=== PATIENT | female | born 1960 | race Caucasian/White ===

== ENCOUNTER 2019-09-15 12:10 | Emergency (ER) | payer MEDICAID ==
[~2019-09-15] VITALS: Ht 165.1 cm; Wt 99.8 kg
[2019-09-15 12:47] VITALS: BP_SYST 110
[2019-09-15] MEDS ORDERED: TRAZ50TA54 PO (12:47)
[2019-09-15] MEDS ORDERED: RIVA20TA PO (12:47)
[2019-09-15] MEDS ORDERED: HYDR-1189 PO (12:47)
[2019-09-15] MEDS ORDERED: CYCL-10 PO (12:47)
[2019-09-15] MEDS ORDERED: TAMO20TA4 PO (12:47)
[2019-09-15] MEDS ORDERED: MEGE40TA PO (12:47)
[2019-09-15] MEDS ORDERED: GABA-331 PO (12:47)
[2019-09-15] MEDS ORDERED: PARO10TA75 PO (12:47)
[2019-09-15] MEDS ORDERED: PROC-11 PO (12:47)
[2019-09-15] MEDS ORDERED: OXYB5TAB11 PO (12:47)
--- NOTE | 2019-09-15 12:52 | NUR ---
PATIENT TO [facility]
--- NOTE | 2019-09-15 13:10 | NUR ---
MD SEWELL AT BEDSIDE ASSESSING PT.
--- NOTE | 2019-09-15 13:20 | NUR ---
RN ASSESSING PT. PT STATED SHE HAD ILLIOSTOMY IN THE LAST FEW MONTHS AND WAS ON MORPHINE. SHE STATED SHE CURRENTLY USES NORCO 5MG. SHE CAME TO THE ER WITH BACK PAIN WITHOUT TRAUMA. PT IS ORIENTED, CALM AND STABLE.
--- NOTE | 2019-09-15 13:30 | NUR ---
Note undone in ED - 09/15/19 at 1343 by [email or web address] Patient given written and verbal discharge instructions and verbalizes understanding. ER discussed with patient the results and treatment provided. Patient in stable condition. ID arm band removed. Rx of TYLENOL given. Patient educated on pain management and to follow up with PMD. Pain Scale 0/10 . Opportunity for questions provided and answered. Medication side effect fact sheet provided.
[2019-09-15] MEDS ORDERED: NACL 0.9% 1,000 ML IV ONE (14:15)
[2019-09-15 14:34] LABS: BILIRUBIN,URINE NEGATIVE (NEGATIVE); BLOOD, URINE 3+ (NEGATIVE); CLARITY/URINE SL CLOUDY (CLEAR); COLOR,URINE YELLOW (YELLOW); GLUCOSE,URINE NEGATIVE (NEGATIVE); KETONES,URINE NEGATIVE (NEGATIVE); LEUKOCYTE ESTERASE ,URINE 2+ (NEGATIVE); NITRITE, URINE NEGATIVE (NEGATIVE); PH,URINE 6.5 (5.0-8.0); PROTEIN URINE 2+ (NEGATIVE); UROBILINOGEN,URINE 0.2 (0.2-1.0)
[2019-09-15 14:51] LABS: BASOPHILS % (AUTO) 0.2 % (0.0-2.0); CALCIUM 10.2 mg/dL (8.4-11.0); CREATININE 0.96 mg/dL (0.55-1.30); EOSINOPHILS % (AUTO) 0.1 % (0.0-4.0); HEMATOCRIT 37.6 % (36-48); HEMOGLOBIN 12.4 g/dL (12.0-16.0); LYMPHOCYTES # (AUTO) 0.4 K/uL (1.0-5.5); LYMPHOCYTES % (AUTO) 3.8 % (20.5-51.5); MEAN CORPUSCULAR HEMOGLOBIN 30 pg (27-31); MEAN CORPUSCULAR HGB CONC 33 % (32-36); MEAN CORPUSCULAR VOLUME 92 fL (79.0-98.0); MONOCYTES # (AUTO) 0.5 K/uL (0.0-1.0); NEUTROPHILS # (AUTO) 10.3 K/uL (1.8-7.7); NEUTROPHILS % (AUTO) 91.9 % (40.0-70.0); PLATELET COUNT (AUTO) 213 K/uL (130-430); POTASSIUM 3.7 mmol/L (3.5-5.1); RED BLOOD CELL COUNT(AUTO) 4.08 MIL/uL (4.2-6.2); RED CELL DISTRIBUTION WIDTH 13.6 % (9.0-15.0); WHITE BLOOD COUNT (AUTO) 11.2 K/uL (4.8-10.8)
[2019-09-15 14:52] LABS: RBC,URINE >100 /HPF (0-3); WBC,URINE 20-50 /HPF (0-3)
[2019-09-15 14:53] LABS: BACTERIA,URINE FEW /HPF (None Seen); MUCUS,URINE None Seen /LPF (None Seen)
--- NOTE | 2019-09-15 14:54 | NUR ---
CALM, ALERT, RESP UNLABORED, CLEAR MENTATION AND SPEECH. IV HYDRATION W/NS
[2019-09-15 14:58] LABS: ALBUMIN 3.7 g/dL (3.4-4.8); TOTAL BILIRUBIN 0.4 mg/dL (0.0-1.0)
[2019-09-15 15:17] LABS: INR 1.1 (0.8-1.2); PROTHROMBIN TIME 10.9 SECS (9.5-12.5)
--- NOTE | 2019-09-15 15:44 | NUR ---
US BEING DONE NOW.
[2019-09-15] MEDS ORDERED: MORPHINE 4 MG/ML INJ. SYRINGE IVP ONE ×2 (17:00→18:00)
--- NOTE | 2019-09-15 18:16 | NUR ---
PT IS EATING DINNER. PAIN MEDCIATION GIVEN AND VERY EFFECTIVE. PT IS NOT COMPLAINING OF ANY PAIN AT THIS TIME. LEVOQUIN GIVEN.
--- NOTE | 2019-09-15 19:04 | NUR ---
Patient given written and verbal discharge instructions and verbalizes understanding. ER MD discussed with patient the results and treatment provided. Patient in stable condition. ID arm band removed. IV catheter removed intact and dressing applied, no active bleeding. Rx of norco 5 mg and tylenol given. Patient educated on pain management and to follow up with PMD. Pain Scale 0/10. Opportunity for questions provided and answered. Medication side effect fact sheet provided.
[2019-09-15 19:05] VITALS: BP_SYST 115
== END 2019-09-15 19:05 | disposition home or self-care (01) ==
LOC: SED 12:10
DX: C55 Malignant neoplasm of uterus, part unspecified (principal); M54.5 Low back pain; N39.0 Urinary tract infection, site not specified; F17.200 Nicotine dependence, unspecified, uncomplicated; Z85.43 Personal history of malignant neoplasm of ovary; Z79.899 Other long term (current) drug therapy; Z88.1 Allergy status to other antibiotic agents
CPT/HCPCS: 36415; 71045; 72100; 76830; 76857; 80053; 81000; 82150; 82550; 83605; 83690; 84484; 85025; 85610; 85730; 87040; 87086; 93005; 96365; 96375; 99285; J1956; J2270; J7030; 76856-TC

== ENCOUNTER 2020-01-13 15:40 | Inpatient (IN) | payer MEDICAID, SELFPAY ==
[~2020-01-13] VITALS: Ht 160 cm; Wt 88.0 kg
[~2020-01-13 15:40] MED LIST: CYCL-10 PO; GABA-331 PO; HYDR-1189 PO; MEGE40TA PO; OXYB5TAB17 PO; PARO10TA75 PO; PROC-11 PO; RIVA20TA PO; TAMO20TA4 PO; TRAZ50TA54 PO
[2020-01-13 15:45] VITALS: BP_SYST 92
[2020-01-13] MEDS ORDERED: LEVOFLOXACIN 500 MG/D5W 100 ML IV ONE (16:00)
[2020-01-13] MEDS ORDERED: NS 1000 ML IV.SOLN IV ONE (16:00)
[2020-01-13] MEDS ORDERED: KETOROLAC TROMETHAMINE 30 MG VIAL IVP ONE (16:15)
[2020-01-13 16:41] LABS: HEMATOCRIT 26.6 % (36-48); MEAN CORPUSCULAR HEMOGLOBIN 29 pg (27-31); MEAN CORPUSCULAR HGB CONC 34 % (32-36); MEAN CORPUSCULAR VOLUME 85 fL (79.0-98.0); PLATELET COUNT (AUTO) 362 K/uL (130-430); RED BLOOD CELL COUNT(AUTO) 3.13 MIL/uL (4.2-6.2); WHITE BLOOD COUNT (AUTO) 8.9 K/uL (4.8-10.8)
[2020-01-13 17:00] LABS: CALCIUM 8.5 mg/dL (8.4-11.0); CREATININE 2.4 mg/dL (0.55-1.30)
[2020-01-13 17:08] LABS: ALBUMIN 2.1 g/dL (3.4-4.8); TOTAL BILIRUBIN 0.3 mg/dL (0.0-1.0)
[2020-01-13 17:29] LABS: COLOR,URINE YELLOW (YELLOW)
[2020-01-13 17:30] LABS: BILIRUBIN,URINE NEGATIVE (NEGATIVE); BLOOD, URINE 3+ (NEGATIVE); CLARITY/URINE TURBID (CLEAR); GLUCOSE,URINE NEGATIVE (NEGATIVE); KETONES,URINE TRACE (NEGATIVE); LEUKOCYTE ESTERASE ,URINE 2+ (NEGATIVE); NITRITE, URINE NEGATIVE (NEGATIVE); PH,URINE 6.5 (5.0-8.0); PROTEIN URINE 3+ (NEGATIVE); UROBILINOGEN,URINE 0.2 (0.2-1.0)
[2020-01-13 17:41] LABS: BACTERIA,URINE MANY /HPF (None Seen); MUCUS,URINE None Seen /LPF (None Seen); RBC,URINE 20-50 /HPF (0-3); WBC,URINE >100 /HPF (0-3)
[2020-01-13 17:42] LABS: URINE AMORPHOUS URATE 3+ /HPF (None Seen)
[2020-01-13 17:43] LABS: BAND % (MANUAL) 32 % (0-6); BASOPHILS % (MANUAL) 0 % (0-2); EOSINOPHILS % (MANUAL) 0 % (0-7); LYMPHOCYTES % (MANUAL) 8 % (20-46); MONOCYTES % (MANUAL) 4 % (0-11)
[2020-01-13 17:44] LABS: METAMYELOCYTES % 8 % (0-0); MYELOCYTES % 4 % (0-0); PROMYELOCYTES % 1 % (0-0)
[2020-01-13] MEDS ORDERED: PIPERACILLIN/TAZOBACTAM 2.25 GM in NS 50 ML IV ONE (17:45)
[2020-01-13 19:00] VITALS: BP_SYST 73
[2020-01-13] MEDS ORDERED: NALOXONE HCL 0.4 MG/ML AMP (NARCAN) IVP PRN ×2 (19:15→19:45)
[2020-01-13] MEDS ORDERED: HYDROcodone/ACETAMIN 5-325 MG TAB (NORCO/ VICODIN) PO SCH (19:15)
[2020-01-13] MEDS ORDERED: CYCLOBENZAPRINE HCL 10 MG TABLET (FLEXERIL) PO SCH (19:15)
[2020-01-13] MEDS ORDERED: ACETAMINOPHEN 325 MG TABLET PO PRN (19:30)
[2020-01-13] MEDS ORDERED: PANTOPRAZOLE SODIUM 40 MG/VIAL (PROTONIX) IVP ONE (19:30)
[2020-01-13] MEDS: ALBUMIN HUMAN 25% 100 ML IV SCH (19:30)
[2020-01-13] MEDS ORDERED: POTASSIUM CHLORIDE 20 MEQ TAB.PRT.SR PO ONE (19:30)
[2020-01-13] MEDS ORDERED: DIPHENHYDRAMINE INJ 50 MG/ML VIAL IVP PRN (19:45)
[2020-01-13 20:00] VITALS: BP_SYST 67; BP_SYST 86
[2020-01-13] MEDS ORDERED: NOREPINEPHRINE 4 MG/4 ML VIAL IV ONE (20:20)
[2020-01-13 21:00] VITALS: BP_SYST 128
[2020-01-13] MEDS: traZODone HCL 50 MG TABLET (DESYREL) PO SCH (21:00)
[2020-01-13] MEDS: NOREPINEPHRINE BITARTRATE 4 MG in D5W 246 ML IV PRN (21:27)
[2020-01-13] MEDS ORDERED: DOXYCYCLINE HYCLATE 100 MG VIAL IV ONE (21:27)
[2020-01-13] MEDS: NACL 0.9% 1,000 ML IV SCH (21:56)
[2020-01-13 22:00] VITALS: BP_SYST 108
[2020-01-13] MEDS: DOXYCYCLINE HYCLATE 100 MG in D5W 100 ML IV SCH (22:05)
[2020-01-13] MEDS: GABAPENTIN 100 MG CAPSULE PO SCH (22:06)
[2020-01-13 23:00] VITALS: BP_SYST 110
[2020-01-14] VITALS (22 sets, daily range): BP systolic 93–135
[2020-01-14] MEDS: ALBUMIN HUMAN 25% 100 ML IV SCH ×2 (00:51→03:37)
[2020-01-14] MEDS ORDERED: ALBUMIN HUMAN 25% 100 ML IV ONE ×2 (01:06→03:56)
[2020-01-14] MEDS: NACL 0.9% 1,000 ML IV SCH ×4 (01:55→22:12)
[2020-01-14 06:18] LABS: BASOPHILS % (AUTO) 0.1 % (0.0-2.0); EOSINOPHILS % (AUTO) 0.1 % (0.0-4.0); HEMATOCRIT 23.8 % (36-48); HEMOGLOBIN 7.9 g/dL (12.0-16.0); LYMPHOCYTES # (AUTO) 0.9 K/uL (1.0-5.5); LYMPHOCYTES % (AUTO) 9.3 % (20.5-51.5); MEAN CORPUSCULAR HEMOGLOBIN 29 pg (27-31); MEAN CORPUSCULAR HGB CONC 33 % (32-36); MEAN CORPUSCULAR VOLUME 85 fL (79.0-98.0); MONOCYTES # (AUTO) 0.9 K/uL (0.0-1.0); MONOCYTES % (AUTO) 9.8 % (1.7-9.3); NEUTROPHILS # (AUTO) 7.5 K/uL (1.8-7.7); NEUTROPHILS % (AUTO) 80.7 % (40.0-70.0); PLATELET COUNT (AUTO) 377 K/uL (130-430); RED BLOOD CELL COUNT(AUTO) 2.79 MIL/uL (4.2-6.2); WHITE BLOOD COUNT (AUTO) 9.3 K/uL (4.8-10.8)
[2020-01-14 07:50] LABS: CALCIUM 8.3 mg/dL (8.4-11.0); CREATININE 2.05 mg/dL (0.55-1.30); POTASSIUM 3.5 mmol/L (3.5-5.1); TOTAL BILIRUBIN 0.2 mg/dL (0.0-1.0)
[2020-01-14 07:51] LABS: ALBUMIN 2.8 g/dL (3.4-4.8)
[2020-01-14 07:53] LABS: TOTAL IRON BIND. CAPACITY 124 ug/dL (250-450)
[2020-01-14] MEDS: DOXYCYCLINE HYCLATE 100 MG in D5W 100 ML IV SCH (08:21)
[2020-01-14] MEDS: PANTOPRAZOLE SODIUM 40 MG/VIAL (PROTONIX) IVP SCH (09:02)
[2020-01-14] MEDS: PARoxetine HCL 20 MG TABLET PO SCH (09:03)
[2020-01-14] MEDS: TAMOXIFEN CITRATE 10 MG TABLET PO SCH (09:03)
[2020-01-14] MEDS: GABAPENTIN 100 MG CAPSULE PO SCH ×3 (09:03→20:21)
[2020-01-14] MEDS: OXYBUTYNIN CHLORIDE 5 MG TABLET PO SCH (09:03)
[2020-01-14] MEDS: MEGESTROL ACETATE 40 MG TABLET PO SCH (09:03)
[2020-01-14] MEDS ORDERED: CIPROFLOXACIN LACT 200 MG/D5W 100 ML IV SCH (10:00)
[2020-01-14] MEDS: HYDROcodone/ACETAMIN 10-325 MG TAB PO PRN ×3 (13:27→23:48)
[2020-01-14] MEDS: MEROPENEM 500 MG in NS 50 ML IV SCH ×2 (13:34→22:17)
[2020-01-14] MEDS: NOREPINEPHRINE BITARTRATE 4 MG in D5W 246 ML IV PRN (13:41)
[2020-01-14] MEDS ORDERED: RIVAROXABAN 10 MG TABLET PO SCH (18:00)
[2020-01-14] MEDS: SOD FERRIC GLUC COMPLEX/SUC 125 MG in NS 100 ML IV SCH (18:19)
[2020-01-14] MEDS: traZODone HCL 50 MG TABLET (DESYREL) PO SCH (20:21)
[2020-01-14] MEDS: MULTIVITAMINS TAB 1 TABLET PO SCH (20:21)
[2020-01-15] VITALS (21 sets, daily range): BP systolic 93–130
[2020-01-15] MEDS: NACL 0.9% 1,000 ML IV SCH ×4 (05:03→21:00)
[2020-01-15] MEDS: HYDROcodone/ACETAMIN 10-325 MG TAB PO PRN ×5 (05:08→20:57)
[2020-01-15] MEDS: MEROPENEM 500 MG in NS 50 ML IV SCH ×3 (05:22→22:25)
[2020-01-15 06:30] LABS: BASOPHILS % (AUTO) 0.1 % (0.0-2.0); EOSINOPHILS % (AUTO) 0.3 % (0.0-4.0); HEMATOCRIT 25.2 % (36-48); HEMOGLOBIN 8.4 g/dL (12.0-16.0); LYMPHOCYTES % (AUTO) 10.2 % (20.5-51.5); MEAN CORPUSCULAR HEMOGLOBIN 29 pg (27-31); MEAN CORPUSCULAR HGB CONC 33 % (32-36); MEAN CORPUSCULAR VOLUME 86 fL (79.0-98.0); MONOCYTES # (AUTO) 0.6 K/uL (0.0-1.0); MONOCYTES % (AUTO) 5.8 % (1.7-9.3); NEUTROPHILS # (AUTO) 8.5 K/uL (1.8-7.7); NEUTROPHILS % (AUTO) 83.6 % (40.0-70.0); PLATELET COUNT (AUTO) 453 K/uL (130-430); RED BLOOD CELL COUNT(AUTO) 2.93 MIL/uL (4.2-6.2); RED CELL DISTRIBUTION WIDTH 17.1 % (9.0-15.0); WHITE BLOOD COUNT (AUTO) 10.2 K/uL (4.8-10.8)
[2020-01-15 07:43] LABS: ALBUMIN 2.2 g/dL (3.4-4.8); CALCIUM 8.5 mg/dL (8.4-11.0); CREATININE 1.22 mg/dL (0.55-1.30); PHOSPHORUS 1.3 mg/dL (2.7-4.5); TOTAL BILIRUBIN 0.2 mg/dL (0.0-1.0)
[2020-01-15 08:28] LABS: FOLATE (FOLIC ACID) 12.7 ng/mL (>3.0)
[2020-01-15] MEDS: PANTOPRAZOLE SODIUM 40 MG/VIAL (PROTONIX) IVP SCH (08:37)
[2020-01-15] MEDS: OXYBUTYNIN CHLORIDE 5 MG TABLET PO SCH (08:38)
[2020-01-15] MEDS: GABAPENTIN 100 MG CAPSULE PO SCH ×3 (08:38→20:16)
[2020-01-15] MEDS: PARoxetine HCL 20 MG TABLET PO SCH (08:38)
[2020-01-15] MEDS: MULTIVITAMINS TAB 1 TABLET PO SCH ×2 (08:38→20:16)
[2020-01-15] MEDS: CHOLECALCIFEROL (VITAMIN D3) 2,000 UNIT TABLET PO SCH (08:38)
[2020-01-15] MEDS: MEGESTROL ACETATE 40 MG TABLET PO SCH (08:39)
[2020-01-15] MEDS: TAMOXIFEN CITRATE 10 MG TABLET PO SCH (08:39)
[2020-01-15 08:59] LABS: POTASSIUM 2.9 mmol/L (3.5-5.1)
[2020-01-15] MEDS ORDERED: POTASSIUM CHLORIDE 20 MEQ/PKT PACKET PO ONE (09:00)
[2020-01-15] MEDS ORDERED: MAGNESIUM SULFATE 4 GM in D5W 250 ML IV ONE (12:15)
[2020-01-15] MEDS ORDERED: K PHOS 15 MM in NS 250 ML IV ONE (13:00)
[2020-01-15] MEDS ORDERED: MORPHINE SULFATE 30 MG TABLET.SA PO ONE (13:00)
[2020-01-15] MEDS: NAPH,MB-DB/K PH,MBDB 250 MG TAB PO SCH ×3 (13:08→20:16)
[2020-01-15] MEDS ORDERED: *LOVENOX 1MG/KG Q12H/PHARMACY XX ONE (15:00)
[2020-01-15] MEDS: POTASSIUM CHLORIDE 20 MEQ TAB.PRT.SR PO SCH ×2 (15:08→20:15)
[2020-01-15] MEDS: ENOXAPARIN SODIUM 80 MG/0.8 ML SYRINGE SUBCUT SCH (16:59)
[2020-01-15] MEDS ORDERED: RIVAROXABAN 10 MG TABLET PO SCH (18:00)
[2020-01-15] MEDS: SOD FERRIC GLUC COMPLEX/SUC 125 MG in NS 100 ML IV SCH (19:00)
[2020-01-15] MEDS: traZODone HCL 50 MG TABLET (DESYREL) PO SCH (20:15)
[2020-01-15] MEDS: MORPHINE SULFATE 30 MG TABLET.SA PO SCH (20:15)
[2020-01-15] MEDS: HYDROcodone/ACETAMIN 5-325 MG TAB (NORCO/ VICODIN) PO PRN (23:44)
[2020-01-16] VITALS (20 sets, daily range): BP systolic 92–143
[2020-01-16] MEDS: HYDROcodone/ACETAMIN 10-325 MG TAB PO PRN ×3 (02:16→19:20)
[2020-01-16] MEDS: ENOXAPARIN SODIUM 80 MG/0.8 ML SYRINGE SUBCUT SCH ×2 (04:59→15:11)
[2020-01-16] MEDS: MEROPENEM 500 MG in NS 50 ML IV SCH ×3 (05:00→22:08)
[2020-01-16 06:16] LABS: BASOPHILS % (AUTO) 0.3 % (0.0-2.0); EOSINOPHILS % (AUTO) 0.3 % (0.0-4.0); LYMPHOCYTES # (AUTO) 1.1 K/uL (1.0-5.5); LYMPHOCYTES % (AUTO) 15.1 % (20.5-51.5); MEAN CORPUSCULAR HEMOGLOBIN 29 pg (27-31); MEAN CORPUSCULAR HGB CONC 34 % (32-36); MEAN CORPUSCULAR VOLUME 84 fL (79.0-98.0); MONOCYTES # (AUTO) 0.4 K/uL (0.0-1.0); MONOCYTES % (AUTO) 5.7 % (1.7-9.3); NEUTROPHILS # (AUTO) 5.8 K/uL (1.8-7.7); NEUTROPHILS % (AUTO) 78.6 % (40.0-70.0); PLATELET COUNT (AUTO) 454 K/uL (130-430); RED BLOOD CELL COUNT(AUTO) 2.55 MIL/uL (4.2-6.2); WHITE BLOOD COUNT (AUTO) 7.4 K/uL (4.8-10.8)
[2020-01-16 06:39] LABS: CALCIUM 7.9 mg/dL (8.4-11.0); CREATININE 0.78 mg/dL (0.55-1.30); POTASSIUM 3.8 mmol/L (3.5-5.1)
[2020-01-16 06:55] LABS: HEMATOCRIT 21.5 % (36-48)
[2020-01-16 06:56] LABS: HEMOGLOBIN 7.3 g/dL (12.0-16.0)
[2020-01-16] MEDS: PANTOPRAZOLE SODIUM 40 MG/VIAL (PROTONIX) IVP SCH (08:38)
[2020-01-16] MEDS: POTASSIUM CHLORIDE 20 MEQ TAB.PRT.SR PO SCH ×3 (08:38→20:59)
[2020-01-16] MEDS: GABAPENTIN 100 MG CAPSULE PO SCH ×3 (08:38→20:59)
[2020-01-16] MEDS: PARoxetine HCL 20 MG TABLET PO SCH (08:38)
[2020-01-16] MEDS: MULTIVITAMINS TAB 1 TABLET PO SCH ×2 (08:38→20:59)
[2020-01-16] MEDS: NAPH,MB-DB/K PH,MBDB 250 MG TAB PO SCH ×4 (08:39→20:59)
[2020-01-16] MEDS: CHOLECALCIFEROL (VITAMIN D3) 2,000 UNIT TABLET PO SCH (08:39)
[2020-01-16] MEDS: OXYBUTYNIN CHLORIDE 5 MG TABLET PO SCH (08:39)
[2020-01-16] MEDS: MORPHINE SULFATE 30 MG TABLET.SA PO SCH ×3 (08:39→20:59)
[2020-01-16] MEDS: NACL 0.9% 1,000 ML IV SCH ×2 (11:37→19:47)
[2020-01-16] MEDS: HYDROcodone/ACETAMIN 5-325 MG TAB (NORCO/ VICODIN) PO PRN (11:39)
[2020-01-16] MEDS: SOD FERRIC GLUC COMPLEX/SUC 125 MG in NS 100 ML IV SCH (17:51)
[2020-01-16] MEDS: traZODone HCL 50 MG TABLET (DESYREL) PO SCH (20:58)
[2020-01-17] MEDS: HYDROcodone/ACETAMIN 10-325 MG TAB PO PRN ×5 (00:03→22:17)
[2020-01-17] MEDS: ENOXAPARIN SODIUM 80 MG/0.8 ML SYRINGE SUBCUT SCH ×2 (04:19→15:11)
[2020-01-17 06:43] LABS: BASOPHILS # (AUTO) 0.1 K/uL (0.0-0.2); BASOPHILS % (AUTO) 0.8 % (0.0-2.0); EOSINOPHILS % (AUTO) 0.3 % (0.0-4.0); HEMATOCRIT 26.1 % (36-48); HEMOGLOBIN 8.7 g/dL (12.0-16.0); LYMPHOCYTES % (AUTO) 13.8 % (20.5-51.5); MEAN CORPUSCULAR HEMOGLOBIN 29 pg (27-31); MEAN CORPUSCULAR HGB CONC 33 % (32-36); MEAN CORPUSCULAR VOLUME 86 fL (79.0-98.0); MONOCYTES # (AUTO) 0.5 K/uL (0.0-1.0); MONOCYTES % (AUTO) 7.2 % (1.7-9.3); NEUTROPHILS # (AUTO) 5.4 K/uL (1.8-7.7); NEUTROPHILS % (AUTO) 77.9 % (40.0-70.0); PLATELET COUNT (AUTO) 492 K/uL (130-430); RED BLOOD CELL COUNT(AUTO) 3.03 MIL/uL (4.2-6.2); WHITE BLOOD COUNT (AUTO) 6.9 K/uL (4.8-10.8)
[2020-01-17] MEDS: MEROPENEM 500 MG in NS 50 ML IV SCH (07:07)
[2020-01-17 07:12] LABS: ALBUMIN 2.3 g/dL (3.4-4.8); CALCIUM 8.5 mg/dL (8.4-11.0); CREATININE 0.67 mg/dL (0.55-1.30); PHOSPHORUS 2.8 mg/dL (2.7-4.5); POTASSIUM 4.1 mmol/L (3.5-5.1); TOTAL BILIRUBIN 0.3 mg/dL (0.0-1.0)
[2020-01-17] MEDS: NAPH,MB-DB/K PH,MBDB 250 MG TAB PO SCH ×4 (08:36→20:47)
[2020-01-17] MEDS: POTASSIUM CHLORIDE 20 MEQ TAB.PRT.SR PO SCH ×3 (08:36→20:47)
[2020-01-17] MEDS: MORPHINE SULFATE 30 MG TABLET.SA PO SCH ×3 (08:36→20:47)
[2020-01-17] MEDS: GABAPENTIN 100 MG CAPSULE PO SCH ×3 (08:36→20:47)
[2020-01-17] MEDS: MULTIVITAMINS TAB 1 TABLET PO SCH ×2 (08:36→20:47)
[2020-01-17] MEDS: PARoxetine HCL 20 MG TABLET PO SCH (08:36)
[2020-01-17] MEDS: OXYBUTYNIN CHLORIDE 5 MG TABLET PO SCH (08:36)
[2020-01-17] MEDS: CHOLECALCIFEROL (VITAMIN D3) 2,000 UNIT TABLET PO SCH (08:36)
[2020-01-17] MEDS: PANTOPRAZOLE SODIUM 40 MG/VIAL (PROTONIX) IVP SCH (08:36)
[2020-01-17] MEDS: LEVOFLOXACIN 250 MG/D5W 50 ML IV SCH (11:43)
[2020-01-17 12:15] VITALS: BP_SYST 112
[2020-01-17 16:54] VITALS: BP_SYST 116
[2020-01-17] MEDS: SOD FERRIC GLUC COMPLEX/SUC 125 MG in NS 100 ML IV SCH (17:11)
[2020-01-17] MEDS: NACL 0.9% 1,000 ML IV SCH (17:18)
[2020-01-17] MEDS: traZODone HCL 50 MG TABLET (DESYREL) PO SCH (20:47)
[2020-01-18] VITALS: BP_SYST 100
[2020-01-18] MEDS: ENOXAPARIN SODIUM 80 MG/0.8 ML SYRINGE SUBCUT SCH ×2 (03:27→15:17)
[2020-01-18] MEDS: HYDROcodone/ACETAMIN 10-325 MG TAB PO PRN ×4 (05:00→23:32)
[2020-01-18 06:33] LABS: BASOPHILS # (AUTO) 0.1 K/uL (0.0-0.2); BASOPHILS % (AUTO) 0.5 % (0.0-2.0); EOSINOPHILS # (AUTO) 0.1 K/uL (0.0-0.4); EOSINOPHILS % (AUTO) 1.3 % (0.0-4.0); HEMATOCRIT 26.8 % (36-48); HEMOGLOBIN 9.1 g/dL (12.0-16.0); LYMPHOCYTES # (AUTO) 1.5 K/uL (1.0-5.5); LYMPHOCYTES % (AUTO) 14.4 % (20.5-51.5); MEAN CORPUSCULAR HEMOGLOBIN 29 pg (27-31); MEAN CORPUSCULAR HGB CONC 34 % (32-36); MEAN CORPUSCULAR VOLUME 86 fL (79.0-98.0); MONOCYTES % (AUTO) 9.4 % (1.7-9.3); NEUTROPHILS # (AUTO) 7.6 K/uL (1.8-7.7); NEUTROPHILS % (AUTO) 74.4 % (40.0-70.0); PLATELET COUNT (AUTO) 522 K/uL (130-430); RED BLOOD CELL COUNT(AUTO) 3.13 MIL/uL (4.2-6.2); WHITE BLOOD COUNT (AUTO) 10.2 K/uL (4.8-10.8)
[2020-01-18 06:57] LABS: ALBUMIN 2.2 g/dL (3.4-4.8); CALCIUM 8.6 mg/dL (8.4-11.0); CREATININE 0.7 mg/dL (0.55-1.30); TOTAL BILIRUBIN 0.3 mg/dL (0.0-1.0)
[2020-01-18 08:03] VITALS: BP_SYST 111
[2020-01-18] MEDS: POTASSIUM CHLORIDE 20 MEQ TAB.PRT.SR PO SCH ×3 (08:38→20:59)
[2020-01-18] MEDS: GABAPENTIN 100 MG CAPSULE PO SCH ×3 (08:38→21:00)
[2020-01-18] MEDS: MULTIVITAMINS TAB 1 TABLET PO SCH ×2 (08:38→20:59)
[2020-01-18] MEDS: PANTOPRAZOLE SODIUM 40 MG/VIAL (PROTONIX) IVP SCH (08:38)
[2020-01-18] MEDS: PARoxetine HCL 20 MG TABLET PO SCH (08:39)
[2020-01-18] MEDS: CHOLECALCIFEROL (VITAMIN D3) 2,000 UNIT TABLET PO SCH (08:39)
[2020-01-18] MEDS: NAPH,MB-DB/K PH,MBDB 250 MG TAB PO SCH ×4 (08:39→20:59)
[2020-01-18] MEDS: MORPHINE SULFATE 30 MG TABLET.SA PO SCH ×3 (08:39→21:00)
[2020-01-18] MEDS: OXYBUTYNIN CHLORIDE 5 MG TABLET PO SCH (08:39)
[2020-01-18] MEDS: LEVOFLOXACIN 250 MG/D5W 50 ML IV SCH (11:16)
[2020-01-18 12:02] VITALS: BP_SYST 134
[2020-01-18] MEDS ORDERED: LOVI80 SQ (16:14)
[2020-01-18 16:23] VITALS: BP_SYST 130
[2020-01-18] MEDS: SOD FERRIC GLUC COMPLEX/SUC 125 MG in NS 100 ML IV SCH (18:33)
[2020-01-18] MEDS: NACL 0.9% 1,000 ML IV SCH (18:34)
[2020-01-18 20:00] VITALS: BP_SYST 98
[2020-01-18] MEDS: traZODone HCL 50 MG TABLET (DESYREL) PO SCH (21:00)
[2020-01-19 04:00] VITALS: BP_SYST 102
[2020-01-19] MEDS: HYDROcodone/ACETAMIN 10-325 MG TAB PO PRN ×4 (04:05→18:53)
[2020-01-19] MEDS: ENOXAPARIN SODIUM 80 MG/0.8 ML SYRINGE SUBCUT SCH ×2 (04:10→16:04)
[2020-01-19 08:00] VITALS: BP_SYST 161
[2020-01-19] MEDS: MULTIVITAMINS TAB 1 TABLET PO SCH ×2 (08:45→21:36)
[2020-01-19] MEDS: NAPH,MB-DB/K PH,MBDB 250 MG TAB PO SCH ×3 (08:45→21:35)
[2020-01-19] MEDS: POTASSIUM CHLORIDE 20 MEQ TAB.PRT.SR PO SCH ×2 (08:46→15:04)
[2020-01-19] MEDS: PARoxetine HCL 20 MG TABLET PO SCH (08:46)
[2020-01-19] MEDS: CHOLECALCIFEROL (VITAMIN D3) 2,000 UNIT TABLET PO SCH (08:46)
[2020-01-19] MEDS: OXYBUTYNIN CHLORIDE 5 MG TABLET PO SCH (08:46)
[2020-01-19] MEDS: GABAPENTIN 100 MG CAPSULE PO SCH ×3 (08:46→21:33)
[2020-01-19] MEDS: MORPHINE SULFATE 30 MG TABLET.SA PO SCH ×2 (08:46→21:36)
[2020-01-19] MEDS: PANTOPRAZOLE SODIUM 40 MG/VIAL (PROTONIX) IVP SCH (08:47)
[2020-01-19] MEDS ORDERED: levoFLOXacin 500 MG TABLET PO ONE (09:00)
[2020-01-19] MEDS: LEVOFLOXACIN 250 MG/D5W 50 ML IV SCH (12:14)
[2020-01-19] MEDS ORDERED: MORPHINE SULFATE 30 MG TABLET.SA PO SCH (12:45)
[2020-01-19 13:10] VITALS: BP_SYST 107
[2020-01-19] MEDS ORDERED: MORPHINE SULFATE 30 MG TABLET.SA PO ONE (13:45)
[2020-01-19] MEDS: SOD FERRIC GLUC COMPLEX/SUC 125 MG in NS 100 ML IV SCH (17:42)
[2020-01-19 18:09] VITALS: BP_SYST 108
[2020-01-19 20:00] VITALS: BP_SYST 126
[2020-01-19] MEDS: NACL 0.9% 1,000 ML IV SCH (21:33)
[2020-01-19] MEDS: traZODone HCL 50 MG TABLET (DESYREL) PO SCH (21:36)
[2020-01-20] VITALS: BP_SYST 100
[2020-01-20] MEDS: HYDROcodone/ACETAMIN 10-325 MG TAB PO PRN ×6 (00:14→21:28)
[2020-01-20] MEDS: ENOXAPARIN SODIUM 80 MG/0.8 ML SYRINGE SUBCUT SCH ×2 (04:08→15:29)
[2020-01-20 07:46] VITALS: BP_SYST 114
[2020-01-20] MEDS: NAPH,MB-DB/K PH,MBDB 250 MG TAB PO SCH ×4 (08:10→20:23)
[2020-01-20] MEDS: PANTOPRAZOLE SODIUM 40 MG/VIAL (PROTONIX) IVP SCH (08:44)
[2020-01-20] MEDS: OXYBUTYNIN CHLORIDE 5 MG TABLET PO SCH (08:45)
[2020-01-20] MEDS: POTASSIUM CHLORIDE 20 MEQ TAB.PRT.SR PO SCH (08:45)
[2020-01-20] MEDS: MULTIVITAMINS TAB 1 TABLET PO SCH ×2 (08:46→20:23)
[2020-01-20] MEDS: MORPHINE SULFATE 30 MG TABLET.SA PO SCH ×2 (08:46→20:23)
[2020-01-20] MEDS: CHOLECALCIFEROL (VITAMIN D3) 2,000 UNIT TABLET PO SCH (08:47)
[2020-01-20] MEDS: PARoxetine HCL 20 MG TABLET PO SCH (08:47)
[2020-01-20] MEDS: GABAPENTIN 100 MG CAPSULE PO SCH ×3 (08:47→20:23)
[2020-01-20] MEDS: LEVOFLOXACIN 250 MG/D5W 50 ML IV SCH (11:52)
[2020-01-20 12:00] VITALS: BP_SYST 100
[2020-01-20 16:52] VITALS: BP_SYST 104
[2020-01-20] MEDS: SOD FERRIC GLUC COMPLEX/SUC 125 MG in NS 100 ML IV SCH (17:36)
[2020-01-20 20:00] VITALS: BP_SYST 134
[2020-01-20] MEDS: traZODone HCL 50 MG TABLET (DESYREL) PO SCH (20:23)
[2020-01-20] MEDS: NACL 0.9% 1,000 ML IV SCH (20:24)
[2020-01-21] VITALS: BP_SYST 123
[2020-01-21] MEDS: HYDROcodone/ACETAMIN 10-325 MG TAB PO PRN ×5 (01:37→22:55)
[2020-01-21] MEDS: ENOXAPARIN SODIUM 80 MG/0.8 ML SYRINGE SUBCUT SCH ×2 (04:56→16:17)
[2020-01-21] MEDS: ONDANSETRON HCL 4 MG/2 ML VIAL IVP PRN ×3 (06:13→23:08)
[2020-01-21 08:00] VITALS: BP_SYST 118
[2020-01-21 08:30] LABS: BASOPHILS % (AUTO) 0.2 % (0.0-2.0); EOSINOPHILS % (AUTO) 0.2 % (0.0-4.0); HEMATOCRIT 27.4 % (36-48); HEMOGLOBIN 8.8 g/dL (12.0-16.0); LYMPHOCYTES # (AUTO) 1.6 K/uL (1.0-5.5); LYMPHOCYTES % (AUTO) 11.6 % (20.5-51.5); MEAN CORPUSCULAR HEMOGLOBIN 28 pg (27-31); MEAN CORPUSCULAR HGB CONC 32 % (32-36); MEAN CORPUSCULAR VOLUME 88 fL (79.0-98.0); MONOCYTES # (AUTO) 1.1 K/uL (0.0-1.0); MONOCYTES % (AUTO) 7.9 % (1.7-9.3); NEUTROPHILS # (AUTO) 11.1 K/uL (1.8-7.7); NEUTROPHILS % (AUTO) 80.1 % (40.0-70.0); PLATELET COUNT (AUTO) 588 K/uL (130-430); RED BLOOD CELL COUNT(AUTO) 3.12 MIL/uL (4.2-6.2); RED CELL DISTRIBUTION WIDTH 17.9 % (9.0-15.0); WHITE BLOOD COUNT (AUTO) 13.8 K/uL (4.8-10.8)
[2020-01-21] MEDS: PANTOPRAZOLE SODIUM 40 MG/VIAL (PROTONIX) IVP SCH (08:43)
[2020-01-21] MEDS: POTASSIUM CHLORIDE 20 MEQ TAB.PRT.SR PO SCH (08:44)
[2020-01-21] MEDS: NAPH,MB-DB/K PH,MBDB 250 MG TAB PO SCH ×4 (08:44→21:42)
[2020-01-21] MEDS: OXYBUTYNIN CHLORIDE 5 MG TABLET PO SCH (08:44)
[2020-01-21] MEDS: PARoxetine HCL 20 MG TABLET PO SCH (08:44)
[2020-01-21] MEDS: MULTIVITAMINS TAB 1 TABLET PO SCH ×2 (08:44→21:42)
[2020-01-21] MEDS: CHOLECALCIFEROL (VITAMIN D3) 2,000 UNIT TABLET PO SCH (08:44)
[2020-01-21] MEDS: GABAPENTIN 100 MG CAPSULE PO SCH ×3 (08:45→21:42)
[2020-01-21] MEDS: MORPHINE SULFATE 30 MG TABLET.SA PO SCH ×2 (08:45→21:41)
[2020-01-21 08:55] LABS: ALBUMIN 2.4 g/dL (3.4-4.8); CALCIUM 8.9 mg/dL (8.4-11.0); CREATININE 0.77 mg/dL (0.55-1.30); POTASSIUM 4.2 mmol/L (3.5-5.1); TOTAL BILIRUBIN 0.3 mg/dL (0.0-1.0)
[2020-01-21] MEDS: LEVOFLOXACIN 250 MG/D5W 50 ML IV SCH (12:06)
[2020-01-21 12:33] VITALS: BP_SYST 144
[2020-01-21 16:09] VITALS: BP_SYST 135
[2020-01-21] MEDS: NACL 0.9% 1,000 ML IV SCH (16:17)
[2020-01-21] MEDS ORDERED: LEVO500T89 PO (17:51)
[2020-01-21] MEDS: SOD FERRIC GLUC COMPLEX/SUC 125 MG in NS 100 ML IV SCH (17:52)
[2020-01-21] MEDS ORDERED: FLUC200T PO (17:53)
[2020-01-21 20:00] VITALS: BP_SYST 134
[2020-01-21] MEDS: traZODone HCL 50 MG TABLET (DESYREL) PO SCH (21:42)
[2020-01-22] VITALS: BP_SYST 149
[2020-01-22] MEDS ORDERED: DIATR MEGLU/DIATRIZ SOD 30 ML SOLUTION PO ONE (01:14)
[2020-01-22] MEDS: HYDROcodone/ACETAMIN 10-325 MG TAB PO PRN (02:59)
[2020-01-22] MEDS: ENOXAPARIN SODIUM 80 MG/0.8 ML SYRINGE SUBCUT SCH ×2 (04:48→16:25)
[2020-01-22 06:28] LABS: BASOPHILS # (AUTO) 0.1 K/uL (0.0-0.2); BASOPHILS % (AUTO) 0.5 % (0.0-2.0); EOSINOPHILS % (AUTO) 0.1 % (0.0-4.0); HEMATOCRIT 27.4 % (36-48); LYMPHOCYTES # (AUTO) 1.3 K/uL (1.0-5.5); LYMPHOCYTES % (AUTO) 8.2 % (20.5-51.5); MEAN CORPUSCULAR HEMOGLOBIN 29 pg (27-31); MEAN CORPUSCULAR HGB CONC 33 % (32-36); MEAN CORPUSCULAR VOLUME 87 fL (79.0-98.0); MONOCYTES # (AUTO) 0.9 K/uL (0.0-1.0); NEUTROPHILS # (AUTO) 13.2 K/uL (1.8-7.7); PLATELET COUNT (AUTO) 582 K/uL (130-430); RED BLOOD CELL COUNT(AUTO) 3.16 MIL/uL (4.2-6.2); RED CELL DISTRIBUTION WIDTH 17.8 % (9.0-15.0); WHITE BLOOD COUNT (AUTO) 15.5 K/uL (4.8-10.8)
[2020-01-22 06:36] LABS: ALBUMIN 2.4 g/dL (3.4-4.8); CALCIUM 8.7 mg/dL (8.4-11.0); CREATININE 0.69 mg/dL (0.55-1.30); POTASSIUM 3.7 mmol/L (3.5-5.1); TOTAL BILIRUBIN 0.2 mg/dL (0.0-1.0)
[2020-01-22 08:00] VITALS: BP_SYST 147
[2020-01-22] MEDS: ONDANSETRON HCL 4 MG/2 ML VIAL IVP PRN ×2 (08:06→20:56)
[2020-01-22] MEDS: NAPH,MB-DB/K PH,MBDB 250 MG TAB PO SCH ×4 (08:30→21:00)
[2020-01-22] MEDS ORDERED: FLUCONAZOLE 200 MG TABLET (DIFLUCAN) PO SCH (09:00)
[2020-01-22] MEDS: PARoxetine HCL 20 MG TABLET PO SCH (09:16)
[2020-01-22] MEDS: PANTOPRAZOLE SODIUM 40 MG/VIAL (PROTONIX) IVP SCH (09:16)
[2020-01-22] MEDS: MULTIVITAMINS TAB 1 TABLET PO SCH (09:16)
[2020-01-22] MEDS: POTASSIUM CHLORIDE 20 MEQ TAB.PRT.SR PO SCH (09:16)
[2020-01-22] MEDS: GABAPENTIN 100 MG CAPSULE PO SCH ×3 (09:16→21:00)
[2020-01-22] MEDS: CHOLECALCIFEROL (VITAMIN D3) 2,000 UNIT TABLET PO SCH (09:16)
[2020-01-22] MEDS: OXYBUTYNIN CHLORIDE 5 MG TABLET PO SCH (09:17)
[2020-01-22] MEDS: MORPHINE SULFATE 30 MG TABLET.SA PO SCH (09:17)
[2020-01-22] MEDS ORDERED: MORPHINE 2 MG/ML INJ. SYRINGE IVP PRN (11:00)
[2020-01-22] MEDS: D5LR 1,000 ML IV SCH ×2 (11:54→22:20)
[2020-01-22] MEDS: LEVOFLOXACIN 250 MG/D5W 50 ML IV SCH (11:55)
[2020-01-22] MEDS: NACL 0.9% 1,000 ML IV SCH (11:56)
[2020-01-22 12:30] VITALS: BP_SYST 162
[2020-01-22 13:22] LABS: NEUTROPHILS % (AUTO) 85.2 % (40.0-70.0)
[2020-01-22] MEDS ORDERED: DEXTROSE 50% JECT 50 ML DISP.SYRIN IVP PRN (15:00)
[2020-01-22] MEDS: metroNIDAZOLE 500 mg/NS 100 ML IV SCH ×2 (16:22→21:02)
[2020-01-22] MEDS: MORPHINE 4 MG/ML INJ. SYRINGE IVP PRN ×2 (16:27→19:03)
[2020-01-22 17:01] VITALS: BP_SYST 160
[2020-01-22] MEDS: FLUCONAZOLE 200 mg/ NS 100 ML IV SCH (18:34)
[2020-01-22 20:00] VITALS: BP_SYST 154
[2020-01-22] MEDS: traZODone HCL 50 MG TABLET (DESYREL) PO SCH (21:00)
[2020-01-22] MEDS ORDERED: NALOXONE HCL 0.4 MG/ML AMP (NARCAN) IVP PRN (22:00)
[2020-01-22] MEDS: HYDROmorphone 1 MG INJ. 1 MG/ML AMPUL IVP PRN (22:14)
[2020-01-23] VITALS: BP_SYST 119
[2020-01-23] MEDS: ONDANSETRON HCL 4 MG/2 ML VIAL IVP PRN ×3 (02:39→16:00)
[2020-01-23] MEDS: HYDROmorphone 1 MG INJ. 1 MG/ML AMPUL IVP PRN ×8 (02:41→21:36)
[2020-01-23 06:43] LABS: ALBUMIN 2.5 g/dL (3.4-4.8); CALCIUM 9.5 mg/dL (8.4-11.0); CREATININE 0.84 mg/dL (0.55-1.30); PHOSPHORUS 2.6 mg/dL (2.7-4.5); POTASSIUM 3.5 mmol/L (3.5-5.1); TOTAL BILIRUBIN 0.3 mg/dL (0.0-1.0)
[2020-01-23] MEDS: D5LR 1,000 ML IV SCH (06:49)
[2020-01-23] MEDS: metroNIDAZOLE 500 mg/NS 100 ML IV SCH ×2 (06:55→13:50)
[2020-01-23] MEDS: ENOXAPARIN SODIUM 80 MG/0.8 ML SYRINGE SUBCUT SCH ×2 (07:06→16:04)
[2020-01-23 07:25] LABS: BASOPHILS % (AUTO) 0.3 % (0.0-2.0); HEMATOCRIT 31.8 % (36-48); HEMOGLOBIN 10.4 g/dL (12.0-16.0); LYMPHOCYTES # (AUTO) 1.1 K/uL (1.0-5.5); LYMPHOCYTES % (AUTO) 7.1 % (20.5-51.5); MEAN CORPUSCULAR HEMOGLOBIN 28 pg (27-31); MEAN CORPUSCULAR HGB CONC 33 % (32-36); MEAN CORPUSCULAR VOLUME 86 fL (79.0-98.0); MONOCYTES # (AUTO) 1.1 K/uL (0.0-1.0); MONOCYTES % (AUTO) 6.9 % (1.7-9.3); NEUTROPHILS # (AUTO) 13.9 K/uL (1.8-7.7); NEUTROPHILS % (AUTO) 85.7 % (40.0-70.0); PLATELET COUNT (AUTO) 692 K/uL (130-430); RED CELL DISTRIBUTION WIDTH 17.7 % (9.0-15.0); WHITE BLOOD COUNT (AUTO) 16.2 K/uL (4.8-10.8)
[2020-01-23 08:00] VITALS: BP_SYST 154
[2020-01-23] MEDS: NAPH,MB-DB/K PH,MBDB 250 MG TAB PO SCH ×3 (08:30→21:00)
[2020-01-23] MEDS: PANTOPRAZOLE SODIUM 40 MG/VIAL (PROTONIX) IVP SCH (08:55)
[2020-01-23] MEDS: CHOLECALCIFEROL (VITAMIN D3) 2,000 UNIT TABLET PO SCH (09:00)
[2020-01-23] MEDS: GABAPENTIN 100 MG CAPSULE PO SCH ×3 (09:00→21:00)
[2020-01-23] MEDS: PARoxetine HCL 20 MG TABLET PO SCH (09:00)
[2020-01-23] MEDS: OXYBUTYNIN CHLORIDE 5 MG TABLET PO SCH (09:00)
[2020-01-23] MEDS ORDERED: GASTROGRAFIN 120 ML ONE (09:54)
[2020-01-23] MEDS: LEVOFLOXACIN 250 MG/D5W 50 ML IV SCH (11:35)
[2020-01-23 12:13] VITALS: BP_SYST 139
[2020-01-23] MEDS ORDERED: MAGNESIUM SULFATE 4 GM in D5W 250 ML IV ONE (14:00)
[2020-01-23] MEDS ORDERED: K PHOS 15 MM in NS 250 ML IV ONE (14:00)
[2020-01-23] MEDS ORDERED: NALOXONE HCL 0.4 MG/ML AMP (NARCAN) IVP PRN (14:15)
[2020-01-23] MEDS ORDERED: MINERAL OIL 30 ML UDC NG ONE (14:30)
[2020-01-23] MEDS ORDERED: LACTULOSE 20 GM/30 ML UDC NG ONE (14:30)
[2020-01-23 16:43] VITALS: BP_SYST 134
[2020-01-23] MEDS: FLUCONAZOLE 200 mg/ NS 100 ML IV SCH (18:26)
[2020-01-23 19:20] VITALS: BP_SYST 135
[2020-01-23] MEDS: traZODone HCL 50 MG TABLET (DESYREL) PO SCH (21:00)
[2020-01-23] MEDS ORDERED: *TPN PER PHARMACY XX PRN (21:00)
[2020-01-24] MEDS: HYDROmorphone 1 MG INJ. 1 MG/ML AMPUL IVP PRN ×9 (00:01→21:04)
[2020-01-24] MEDS: metroNIDAZOLE 500 mg/NS 100 ML IV SCH ×4 (00:02→21:02)
[2020-01-24 00:09] VITALS: BP_SYST 154
[2020-01-24] MEDS: [UNRECOGNIZED DRUG - OTHER] IV SCH ×18 (01:31→20:58)
[2020-01-24] MEDS: TPN CENTRAL IV SCH ×18 (01:31→20:58)
[2020-01-24] MEDS: SODIUM CHLORIDE IV SCH ×18 (01:31→20:58)
[2020-01-24] MEDS: D5LR 1,000 ML IV SCH ×2 (04:04→08:57)
[2020-01-24] MEDS: ENOXAPARIN SODIUM 80 MG/0.8 ML SYRINGE SUBCUT SCH ×2 (05:43→18:10)
[2020-01-24] MEDS: INSULIN REGULAR, HUMAN 100 UNITS/ML, 10 ML VIAL (humuLIN R) SUBCUT PRN ×3 (05:56→18:08)
[2020-01-24 06:15] LABS: BASOPHILS # (AUTO) 0.1 K/uL (0.0-0.2); BASOPHILS % (AUTO) 0.4 % (0.0-2.0); HEMATOCRIT 29.2 % (36-48); HEMOGLOBIN 9.7 g/dL (12.0-16.0); LYMPHOCYTES # (AUTO) 1.2 K/uL (1.0-5.5); LYMPHOCYTES % (AUTO) 7.6 % (20.5-51.5); MEAN CORPUSCULAR HEMOGLOBIN 29 pg (27-31); MEAN CORPUSCULAR HGB CONC 33 % (32-36); MEAN CORPUSCULAR VOLUME 86 fL (79.0-98.0); MONOCYTES # (AUTO) 1.1 K/uL (0.0-1.0); MONOCYTES % (AUTO) 6.9 % (1.7-9.3); NEUTROPHILS # (AUTO) 13.1 K/uL (1.8-7.7); NEUTROPHILS % (AUTO) 85.1 % (40.0-70.0); PLATELET COUNT (AUTO) 639 K/uL (130-430); RED BLOOD CELL COUNT(AUTO) 3.38 MIL/uL (4.2-6.2); RED CELL DISTRIBUTION WIDTH 18.1 % (9.0-15.0); WHITE BLOOD COUNT (AUTO) 15.4 K/uL (4.8-10.8)
[2020-01-24 06:27] LABS: ALBUMIN 2.9 g/dL (3.4-4.8); CALCIUM 9.4 mg/dL (8.4-11.0); CREATININE 1.06 mg/dL (0.55-1.30); TOTAL BILIRUBIN 0.3 mg/dL (0.0-1.0)
[2020-01-24] MEDS ORDERED: LACTULOSE 20 GM/30 ML UDC PO ONE (07:30)
[2020-01-24] MEDS ORDERED: METOCLOPRAMIDE HCL 10 MG/2 ML VIAL IVP ONE (07:45)
[2020-01-24 08:00] VITALS: BP_SYST 158
[2020-01-24] MEDS: PARoxetine HCL 20 MG TABLET PO SCH (08:39)
[2020-01-24] MEDS: PANTOPRAZOLE SODIUM 40 MG/VIAL (PROTONIX) IVP SCH (08:39)
[2020-01-24] MEDS: GABAPENTIN 100 MG CAPSULE PO SCH ×3 (08:40→21:05)
[2020-01-24] MEDS: OXYBUTYNIN CHLORIDE 5 MG TABLET PO SCH (08:57)
[2020-01-24] MEDS: CHOLECALCIFEROL (VITAMIN D3) 2,000 UNIT TABLET PO SCH (08:57)
[2020-01-24] MEDS: NAPH,MB-DB/K PH,MBDB 250 MG TAB PO SCH ×4 (11:46→21:06)
[2020-01-24 12:36] VITALS: BP_SYST 153
[2020-01-24] MEDS ORDERED: POTASSIUM CHLORIDE 40 MEQ in NS 250 ML IV ONE (13:00)
[2020-01-24] MEDS: METOCLOPRAMIDE HCL 10 MG/2 ML VIAL IVP SCH (14:24)
[2020-01-24 16:35] VITALS: BP_SYST 142
[2020-01-24] MEDS: FLUCONAZOLE 200 mg/ NS 100 ML IV SCH (18:22)
[2020-01-24] MEDS ORDERED: [UNRECOGNIZED DRUG - OTHER] IV SCH ×9 (21:00)
[2020-01-24] MEDS ORDERED: SODIUM CHLORIDE IV SCH ×9 (21:00)
[2020-01-24] MEDS ORDERED: TPN CENTRAL IV SCH ×9 (21:00)
[2020-01-24] MEDS: traZODone HCL 50 MG TABLET (DESYREL) PO SCH (21:05)
[2020-01-24] MEDS: LACTULOSE 20 GM/30 ML UDC PO SCH (21:05)
[2020-01-25] VITALS: BP_SYST 152
[2020-01-25] MEDS: METOCLOPRAMIDE HCL 10 MG/2 ML VIAL IVP SCH ×3 (00:09→15:10)
[2020-01-25] MEDS: HYDROmorphone 1 MG INJ. 1 MG/ML AMPUL IVP PRN ×5 (00:10→16:48)
[2020-01-25] MEDS: D5LR 1,000 ML IV SCH ×2 (06:33→13:24)
[2020-01-25] MEDS: metroNIDAZOLE 500 mg/NS 100 ML IV SCH ×3 (06:33→21:43)
[2020-01-25] MEDS: ENOXAPARIN SODIUM 80 MG/0.8 ML SYRINGE SUBCUT SCH ×2 (06:34→15:13)
[2020-01-25 06:40] LABS: ALBUMIN 2.8 g/dL (3.4-4.8); CALCIUM 9.1 mg/dL (8.4-11.0); CREATININE 0.82 mg/dL (0.55-1.30); PHOSPHORUS 2.6 mg/dL (2.7-4.5); TOTAL BILIRUBIN 0.2 mg/dL (0.0-1.0)
[2020-01-25 07:15] LABS: POTASSIUM 2.9 mmol/L (3.5-5.1)
[2020-01-25 08:20] VITALS: BP_SYST 160
[2020-01-25] MEDS: NACL 0.9% 1,000 ML IV SCH ×3 (08:32→12:03)
[2020-01-25] MEDS: OXYBUTYNIN CHLORIDE 5 MG TABLET PO SCH (08:42)
[2020-01-25] MEDS: NAPH,MB-DB/K PH,MBDB 250 MG TAB PO SCH ×4 (08:42→21:43)
[2020-01-25] MEDS: CHOLECALCIFEROL (VITAMIN D3) 2,000 UNIT TABLET PO SCH (08:42)
[2020-01-25] MEDS: LACTULOSE 20 GM/30 ML UDC PO SCH ×2 (08:42→21:43)
[2020-01-25] MEDS: PANTOPRAZOLE SODIUM 40 MG/VIAL (PROTONIX) IVP SCH (08:42)
[2020-01-25] MEDS: PARoxetine HCL 20 MG TABLET PO SCH (08:42)
[2020-01-25] MEDS: GABAPENTIN 100 MG CAPSULE PO SCH ×3 (08:43→21:43)
[2020-01-25] MEDS ORDERED: POTASSIUM CHLORIDE 40 MEQ, LIDOCAINE JECT 2% PF 100 MG 50 MG in NS 250 ML IV ONE (10:00)
[2020-01-25 12:37] VITALS: BP_SYST 158
[2020-01-25] MEDS ORDERED: K PHOS 15 MM in NS 250 ML IV ONE (15:00)
[2020-01-25 16:08] VITALS: BP_SYST 150
[2020-01-25] MEDS: FLUCONAZOLE 200 mg/ NS 100 ML IV SCH (18:31)
[2020-01-25 20:09] VITALS: BP_SYST 139; BP_SYST 159
[2020-01-25] MEDS ORDERED: SODIUM CHLORIDE IV SCH ×9 (21:00)
[2020-01-25] MEDS ORDERED: [UNRECOGNIZED DRUG - OTHER] IV SCH ×9 (21:00)
[2020-01-25] MEDS ORDERED: TPN CENTRAL IV SCH ×9 (21:00)
[2020-01-25] MEDS: traZODone HCL 50 MG TABLET (DESYREL) PO SCH (21:43)
[2020-01-26] VITALS: BP_SYST 105; BP_SYST 158
[2020-01-26] MEDS: METOCLOPRAMIDE HCL 10 MG/2 ML VIAL IVP SCH ×4 (00:32→23:12)
[2020-01-26] MEDS: INSULIN REGULAR, HUMAN 100 UNITS/ML, 10 ML VIAL (humuLIN R) SUBCUT PRN (00:41)
[2020-01-26] MEDS: ENOXAPARIN SODIUM 80 MG/0.8 ML SYRINGE SUBCUT SCH ×2 (03:36→14:51)
[2020-01-26] MEDS: D5LR 1,000 ML IV SCH ×2 (03:53→21:20)
[2020-01-26] MEDS: HYDROmorphone 1 MG INJ. 1 MG/ML AMPUL IVP PRN ×2 (03:53→22:49)
[2020-01-26] MEDS: metroNIDAZOLE 500 mg/NS 100 ML IV SCH ×3 (05:48→21:10)
[2020-01-26 07:51] LABS: ALBUMIN 2.8 g/dL (3.4-4.8); CALCIUM 9.2 mg/dL (8.4-11.0); CREATININE 0.94 mg/dL (0.55-1.30); PHOSPHORUS 2.6 mg/dL (2.7-4.5); POTASSIUM 3.2 mmol/L (3.5-5.1); TOTAL BILIRUBIN 0.3 mg/dL (0.0-1.0)
[2020-01-26 08:00] VITALS: BP_SYST 133
[2020-01-26] MEDS: LACTULOSE 20 GM/30 ML UDC PO SCH ×2 (08:05→21:10)
[2020-01-26] MEDS: CHOLECALCIFEROL (VITAMIN D3) 2,000 UNIT TABLET PO SCH (08:05)
[2020-01-26] MEDS: PANTOPRAZOLE SODIUM 40 MG/VIAL (PROTONIX) IVP SCH (08:05)
[2020-01-26] MEDS: OXYBUTYNIN CHLORIDE 5 MG TABLET PO SCH (08:06)
[2020-01-26] MEDS: NAPH,MB-DB/K PH,MBDB 250 MG TAB PO SCH ×4 (08:06→21:10)
[2020-01-26] MEDS: PARoxetine HCL 20 MG TABLET PO SCH (08:06)
[2020-01-26] MEDS: GABAPENTIN 100 MG CAPSULE PO SCH ×3 (08:06→21:10)
[2020-01-26 12:00] VITALS: BP_SYST 139
[2020-01-26] MEDS: NACL 0.9% 1,000 ML IV SCH (12:18)
[2020-01-26] MEDS ORDERED: MAGNESIUM SULFATE 50 ML IV ONE (12:30)
[2020-01-26] MEDS ORDERED: K PHOS 15 MM in NS 250 ML IV ONE (13:00)
[2020-01-26 16:00] VITALS: BP_SYST 152
[2020-01-26] MEDS: ONDANSETRON HCL 4 MG/2 ML VIAL IVP PRN (16:26)
[2020-01-26] MEDS: FLUCONAZOLE 200 mg/ NS 100 ML IV SCH (17:13)
[2020-01-26 20:00] VITALS: BP_SYST 150
[2020-01-26] MEDS ORDERED: TPN CENTRAL IV SCH ×9 (21:00)
[2020-01-26] MEDS ORDERED: [UNRECOGNIZED DRUG - OTHER] IV SCH ×9 (21:00)
[2020-01-26] MEDS ORDERED: SODIUM CHLORIDE IV SCH ×9 (21:00)
[2020-01-26] MEDS: traZODone HCL 50 MG TABLET (DESYREL) PO SCH (21:10)
[2020-01-27 01:28] VITALS: BP_SYST 141
[2020-01-27] MEDS: HYDROmorphone 1 MG INJ. 1 MG/ML AMPUL IVP PRN ×5 (01:32→21:22)
[2020-01-27] MEDS: ENOXAPARIN SODIUM 80 MG/0.8 ML SYRINGE SUBCUT SCH ×2 (04:56→15:02)
[2020-01-27] MEDS: metroNIDAZOLE 500 mg/NS 100 ML IV SCH ×3 (05:30→22:19)
[2020-01-27 07:31] LABS: BASOPHILS # (AUTO) 0.1 K/uL (0.0-0.2); BASOPHILS % (AUTO) 0.4 % (0.0-2.0); EOSINOPHILS % (AUTO) 0.1 % (0.0-4.0); HEMATOCRIT 28.6 % (36-48); HEMOGLOBIN 9.4 g/dL (12.0-16.0); LYMPHOCYTES # (AUTO) 1.1 K/uL (1.0-5.5); LYMPHOCYTES % (AUTO) 6.2 % (20.5-51.5); MEAN CORPUSCULAR HEMOGLOBIN 29 pg (27-31); MEAN CORPUSCULAR HGB CONC 33 % (32-36); MEAN CORPUSCULAR VOLUME 87 fL (79.0-98.0); MONOCYTES # (AUTO) 1.2 K/uL (0.0-1.0); MONOCYTES % (AUTO) 6.5 % (1.7-9.3); NEUTROPHILS # (AUTO) 15.4 K/uL (1.8-7.7); NEUTROPHILS % (AUTO) 86.8 % (40.0-70.0); PLATELET COUNT (AUTO) 437 K/uL (130-430); RED BLOOD CELL COUNT(AUTO) 3.29 MIL/uL (4.2-6.2); RED CELL DISTRIBUTION WIDTH 19.1 % (9.0-15.0); WHITE BLOOD COUNT (AUTO) 17.8 K/uL (4.8-10.8)
[2020-01-27 07:53] LABS: ALBUMIN 2.6 g/dL (3.4-4.8); CALCIUM 8.8 mg/dL (8.4-11.0); CREATININE 1.52 mg/dL (0.55-1.30); PHOSPHORUS 4.2 mg/dL (2.7-4.5); POTASSIUM 3.2 mmol/L (3.5-5.1); TOTAL BILIRUBIN 0.3 mg/dL (0.0-1.0)
[2020-01-27 08:00] VITALS: BP_SYST 124
[2020-01-27] MEDS: LACTULOSE 20 GM/30 ML UDC PO SCH ×2 (09:00→20:33)
[2020-01-27] MEDS: CHOLECALCIFEROL (VITAMIN D3) 2,000 UNIT TABLET PO SCH (09:08)
[2020-01-27] MEDS: PANTOPRAZOLE SODIUM 40 MG/VIAL (PROTONIX) IVP SCH (09:08)
[2020-01-27] MEDS: PARoxetine HCL 20 MG TABLET PO SCH (09:08)
[2020-01-27] MEDS: OXYBUTYNIN CHLORIDE 5 MG TABLET PO SCH (09:08)
[2020-01-27] MEDS: NAPH,MB-DB/K PH,MBDB 250 MG TAB PO SCH ×4 (09:08→20:33)
[2020-01-27] MEDS: METOCLOPRAMIDE HCL 10 MG/2 ML VIAL IVP SCH ×3 (09:08→23:58)
[2020-01-27] MEDS: GABAPENTIN 100 MG CAPSULE PO SCH ×3 (09:08→20:33)
[2020-01-27] MEDS ORDERED: POTASSIUM CHLORIDE 20 MEQ/PKT PACKET PO ONE (10:00)
[2020-01-27] MEDS: PIPERACILLIN/TAZO 3.375/DEX-IS 50 ML IV SCH ×3 (10:40→21:13)
[2020-01-27 11:39] VITALS: BP_SYST 107
[2020-01-27] MEDS ORDERED: LACTOBACILLUS RHAMNOSUS GG 1 CAP CAPSULE PO ONE (11:45)
[2020-01-27] MEDS: NACL 0.9% 1,000 ML IV SCH (11:56)
[2020-01-27 11:57] LABS: BILIRUBIN,URINE 1+ (NEGATIVE); BLOOD, URINE 3+ (NEGATIVE); CLARITY/URINE CLOUDY (CLEAR); COLOR,URINE ORANGE (YELLOW); GLUCOSE,URINE NEGATIVE (NEGATIVE); KETONES,URINE TRACE (NEGATIVE); LEUKOCYTE ESTERASE ,URINE 1+ (NEGATIVE); NITRITE, URINE POSITIVE (NEGATIVE); PROTEIN URINE 2+ (NEGATIVE); UROBILINOGEN,URINE 0.2 (0.2-1.0)
[2020-01-27 12:10] LABS: BACTERIA,URINE MODERATE /HPF (None Seen); MUCUS,URINE 1+ /LPF (None Seen); RBC,URINE 50-80 /HPF (0-3)
[2020-01-27] MEDS: D5LR 1,000 ML IV SCH ×2 (14:59→23:55)
[2020-01-27 15:40] VITALS: BP_SYST 110
[2020-01-27] MEDS: ONDANSETRON HCL 4 MG/2 ML VIAL IVP PRN (17:16)
[2020-01-27] MEDS: FLUCONAZOLE 200 mg/ NS 100 ML IV SCH (18:35)
[2020-01-27 20:05] VITALS: BP_SYST 124
[2020-01-27] MEDS: traZODone HCL 50 MG TABLET (DESYREL) PO SCH (20:33)
[2020-01-27] MEDS: POTASSIUM CHLORIDE 20 MEQ TAB.PRT.SR PO SCH (20:33)
[2020-01-27] MEDS: LACTOBACILLUS RHAMNOSUS GG 1 CAP CAPSULE PO SCH (20:33)
[2020-01-28 00:12] VITALS: BP_SYST 101
[2020-01-28] MEDS: ONDANSETRON HCL 4 MG/2 ML VIAL IVP PRN ×2 (02:11→20:35)
[2020-01-28] MEDS: PIPERACILLIN/TAZO 3.375/DEX-IS 50 ML IV SCH ×4 (03:19→23:13)
[2020-01-28] MEDS: HYDROmorphone 1 MG INJ. 1 MG/ML AMPUL IVP PRN ×4 (03:19→20:43)
[2020-01-28] MEDS: ENOXAPARIN SODIUM 80 MG/0.8 ML SYRINGE SUBCUT SCH ×2 (03:20→15:28)
[2020-01-28] MEDS: metroNIDAZOLE 500 mg/NS 100 ML IV SCH ×3 (05:41→21:30)
[2020-01-28 06:45] LABS: BASOPHILS % (AUTO) 0.2 % (0.0-2.0); HEMATOCRIT 30.3 % (36-48); LYMPHOCYTES # (AUTO) 0.8 K/uL (1.0-5.5); LYMPHOCYTES % (AUTO) 3.8 % (20.5-51.5); MEAN CORPUSCULAR HEMOGLOBIN 29 pg (27-31); MEAN CORPUSCULAR HGB CONC 33 % (32-36); MEAN CORPUSCULAR VOLUME 87 fL (79.0-98.0); MONOCYTES # (AUTO) 1.2 K/uL (0.0-1.0); MONOCYTES % (AUTO) 5.6 % (1.7-9.3); NEUTROPHILS # (AUTO) 19.1 K/uL (1.8-7.7); PLATELET COUNT (AUTO) 409 K/uL (130-430); RED BLOOD CELL COUNT(AUTO) 3.48 MIL/uL (4.2-6.2); RED CELL DISTRIBUTION WIDTH 19.1 % (9.0-15.0); WHITE BLOOD COUNT (AUTO) 21.1 K/uL (4.8-10.8)
[2020-01-28 07:06] LABS: CALCIUM 8.8 mg/dL (8.4-11.0); CREATININE 1.31 mg/dL (0.55-1.30); POTASSIUM 3.8 mmol/L (3.5-5.1)
[2020-01-28 08:00] VITALS: BP_SYST 138
[2020-01-28] MEDS: D5LR 1,000 ML IV SCH (09:37)
[2020-01-28] MEDS: PANTOPRAZOLE SODIUM 40 MG/VIAL (PROTONIX) IVP SCH (09:45)
[2020-01-28] MEDS: METOCLOPRAMIDE HCL 10 MG/2 ML VIAL IVP SCH ×2 (09:45→15:28)
[2020-01-28] MEDS: LACTULOSE 20 GM/30 ML UDC PO SCH ×2 (09:45→21:00)
[2020-01-28] MEDS: NAPH,MB-DB/K PH,MBDB 250 MG TAB PO SCH ×4 (09:46→21:39)
[2020-01-28] MEDS: LACTOBACILLUS RHAMNOSUS GG 1 CAP CAPSULE PO SCH ×2 (09:46→21:30)
[2020-01-28] MEDS: GABAPENTIN 100 MG CAPSULE PO SCH ×3 (09:46→21:31)
[2020-01-28] MEDS: CHOLECALCIFEROL (VITAMIN D3) 2,000 UNIT TABLET PO SCH (09:46)
[2020-01-28] MEDS: PARoxetine HCL 20 MG TABLET PO SCH (09:46)
[2020-01-28] MEDS: OXYBUTYNIN CHLORIDE 5 MG TABLET PO SCH (09:46)
[2020-01-28] MEDS: POTASSIUM CHLORIDE 20 MEQ TAB.PRT.SR PO SCH ×2 (09:54→21:30)
[2020-01-28 11:29] LABS: NEUTROPHILS % (AUTO) 90.4 % (40.0-70.0)
[2020-01-28 12:00] VITALS: BP_SYST 107
[2020-01-28] MEDS: NACL 0.9% 1,000 ML IV SCH (13:05)
[2020-01-28 16:00] VITALS: BP_SYST 97
[2020-01-28] MEDS ORDERED: DOCUSATE SODIUM 250 MG CAPSULE PO ONE (16:45)
[2020-01-28] MEDS: LR 1,000 ML IV SCH (17:30)
[2020-01-28] MEDS: FLUCONAZOLE 200 mg/ NS 100 ML IV SCH (17:32)
[2020-01-28 20:00] VITALS: BP_SYST 124
[2020-01-28] MEDS: traZODone HCL 50 MG TABLET (DESYREL) PO SCH (21:30)
[2020-01-29] VITALS: BP_SYST 109
[2020-01-29] MEDS: METOCLOPRAMIDE HCL 10 MG/2 ML VIAL IVP SCH ×4 (00:33→23:35)
[2020-01-29] MEDS: HYDROmorphone 1 MG INJ. 1 MG/ML AMPUL IVP PRN ×7 (00:46→21:19)
[2020-01-29] MEDS: metroNIDAZOLE 500 mg/NS 100 ML IV SCH (04:27)
[2020-01-29] MEDS: ENOXAPARIN SODIUM 80 MG/0.8 ML SYRINGE SUBCUT SCH ×2 (04:32→16:39)
[2020-01-29] MEDS: PIPERACILLIN/TAZO 3.375/DEX-IS 50 ML IV SCH ×4 (04:47→21:08)
[2020-01-29] MEDS: LR 1,000 ML IV SCH ×2 (04:59→23:42)
[2020-01-29 06:56] LABS: BASOPHILS % (AUTO) 0.3 % (0.0-2.0); EOSINOPHILS % (AUTO) 0.2 % (0.0-4.0); HEMATOCRIT 30.8 % (36-48); HEMOGLOBIN 10.2 g/dL (12.0-16.0); LYMPHOCYTES % (AUTO) 7.9 % (20.5-51.5); MEAN CORPUSCULAR HEMOGLOBIN 29 pg (27-31); MEAN CORPUSCULAR HGB CONC 33 % (32-36); MEAN CORPUSCULAR VOLUME 87 fL (79.0-98.0); MONOCYTES # (AUTO) 1.3 K/uL (0.0-1.0); MONOCYTES % (AUTO) 9.9 % (1.7-9.3); NEUTROPHILS # (AUTO) 10.4 K/uL (1.8-7.7); NEUTROPHILS % (AUTO) 81.7 % (40.0-70.0); PLATELET COUNT (AUTO) 362 K/uL (130-430); RED BLOOD CELL COUNT(AUTO) 3.56 MIL/uL (4.2-6.2); RED CELL DISTRIBUTION WIDTH 20.3 % (9.0-15.0); WHITE BLOOD COUNT (AUTO) 12.8 K/uL (4.8-10.8)
[2020-01-29 07:12] LABS: ALBUMIN 2.4 g/dL (3.4-4.8); CREATININE 1.13 mg/dL (0.55-1.30); POTASSIUM 3.9 mmol/L (3.5-5.1); TOTAL BILIRUBIN 0.4 mg/dL (0.0-1.0)
[2020-01-29 08:00] VITALS: BP_SYST 112
[2020-01-29] MEDS: NAPH,MB-DB/K PH,MBDB 250 MG TAB PO SCH ×4 (08:30→21:01)
[2020-01-29] MEDS: PANTOPRAZOLE SODIUM 40 MG/VIAL (PROTONIX) IVP SCH (08:47)
[2020-01-29] MEDS: LACTULOSE 20 GM/30 ML UDC PO SCH ×2 (08:47→20:56)
[2020-01-29] MEDS: PARoxetine HCL 20 MG TABLET PO SCH (08:48)
[2020-01-29] MEDS: DOCUSATE SODIUM 250 MG CAPSULE PO SCH ×2 (08:48→20:56)
[2020-01-29] MEDS: POTASSIUM CHLORIDE 20 MEQ TAB.PRT.SR PO SCH ×2 (08:48→20:57)
[2020-01-29] MEDS: LACTOBACILLUS RHAMNOSUS GG 1 CAP CAPSULE PO SCH ×2 (08:48→20:56)
[2020-01-29] MEDS: OXYBUTYNIN CHLORIDE 5 MG TABLET PO SCH (08:48)
[2020-01-29] MEDS: CHOLECALCIFEROL (VITAMIN D3) 2,000 UNIT TABLET PO SCH (08:48)
[2020-01-29] MEDS: GABAPENTIN 100 MG CAPSULE PO SCH ×3 (09:00→20:57)
[2020-01-29 12:00] VITALS: BP_SYST 112
[2020-01-29] MEDS: NACL 0.9% 1,000 ML IV SCH (12:45)
[2020-01-29 16:00] VITALS: BP_SYST 110
[2020-01-29] MEDS: FLUCONAZOLE 200 mg/ NS 100 ML IV SCH (18:05)
[2020-01-29 20:02] VITALS: BP_SYST 109
[2020-01-29] MEDS: traZODone HCL 50 MG TABLET (DESYREL) PO SCH (20:56)
[2020-01-30 00:30] VITALS: BP_SYST 112
[2020-01-30] MEDS: HYDROmorphone 1 MG INJ. 1 MG/ML AMPUL IVP PRN ×8 (00:32→22:09)
[2020-01-30] MEDS: PIPERACILLIN/TAZO 3.375/DEX-IS 50 ML IV SCH ×4 (03:01→22:03)
[2020-01-30] MEDS: ENOXAPARIN SODIUM 80 MG/0.8 ML SYRINGE SUBCUT SCH ×2 (03:07→15:40)
[2020-01-30 07:30] LABS: EOSINOPHILS # (AUTO) 0.1 K/uL (0.0-0.4); EOSINOPHILS % (AUTO) 0.9 % (0.0-4.0); HEMATOCRIT 28.6 % (36-48); HEMOGLOBIN 9.4 g/dL (12.0-16.0); LYMPHOCYTES # (AUTO) 0.5 K/uL (1.0-5.5); LYMPHOCYTES % (AUTO) 4.3 % (20.5-51.5); MEAN CORPUSCULAR HEMOGLOBIN 29 pg (27-31); MEAN CORPUSCULAR HGB CONC 33 % (32-36); MEAN CORPUSCULAR VOLUME 87 fL (79.0-98.0); MONOCYTES # (AUTO) 3.9 K/uL (0.0-1.0); MONOCYTES % (AUTO) 35.3 % (1.7-9.3); NEUTROPHILS # (AUTO) 6.6 K/uL (1.8-7.7); NEUTROPHILS % (AUTO) 59.5 % (40.0-70.0); PLATELET COUNT (AUTO) 353 K/uL (130-430); RED CELL DISTRIBUTION WIDTH 19.5 % (9.0-15.0); WHITE BLOOD COUNT (AUTO) 11.2 K/uL (4.8-10.8)
[2020-01-30 07:50] LABS: ALBUMIN 2.3 g/dL (3.4-4.8); CALCIUM 8.8 mg/dL (8.4-11.0); CREATININE 1.02 mg/dL (0.55-1.30); POTASSIUM 4.2 mmol/L (3.5-5.1); TOTAL BILIRUBIN 0.3 mg/dL (0.0-1.0)
[2020-01-30 08:00] VITALS: BP_SYST 123
[2020-01-30] MEDS: METOCLOPRAMIDE HCL 10 MG/2 ML VIAL IVP SCH ×2 (08:55→15:37)
[2020-01-30] MEDS: NAPH,MB-DB/K PH,MBDB 250 MG TAB PO SCH ×4 (08:56→22:03)
[2020-01-30] MEDS: PANTOPRAZOLE SODIUM 40 MG/VIAL (PROTONIX) IVP SCH (08:56)
[2020-01-30] MEDS: CHOLECALCIFEROL (VITAMIN D3) 2,000 UNIT TABLET PO SCH (08:57)
[2020-01-30] MEDS: PARoxetine HCL 20 MG TABLET PO SCH (08:57)
[2020-01-30] MEDS: LACTOBACILLUS RHAMNOSUS GG 1 CAP CAPSULE PO SCH ×2 (08:57→22:02)
[2020-01-30] MEDS: GABAPENTIN 100 MG CAPSULE PO SCH ×4 (08:57→22:02)
[2020-01-30] MEDS: OXYBUTYNIN CHLORIDE 5 MG TABLET PO SCH (08:57)
[2020-01-30] MEDS: POTASSIUM CHLORIDE 20 MEQ TAB.PRT.SR PO SCH ×2 (08:57→22:02)
[2020-01-30] MEDS: DOCUSATE SODIUM 250 MG CAPSULE PO SCH ×2 (09:00→22:02)
[2020-01-30] MEDS: LACTULOSE 20 GM/30 ML UDC PO SCH ×2 (09:00→21:00)
[2020-01-30] MEDS: NACL 0.9% 1,000 ML IV SCH (12:48)
[2020-01-30 13:16] VITALS: BP_SYST 120
[2020-01-30 16:00] VITALS: BP_SYST 135
[2020-01-30] MEDS: FLUCONAZOLE 200 mg/ NS 100 ML IV SCH (17:39)
[2020-01-30] MEDS: LR 1,000 ML IV SCH (17:40)
[2020-01-30 19:00] VITALS: BP_SYST 126
[2020-01-30 20:00] VITALS: BP_SYST 128
[2020-01-30] MEDS: traZODone HCL 50 MG TABLET (DESYREL) PO SCH (22:02)
[2020-01-31] MEDS: METOCLOPRAMIDE HCL 10 MG/2 ML VIAL IVP SCH (00:11)
[2020-01-31] MEDS: HYDROmorphone 1 MG INJ. 1 MG/ML AMPUL IVP PRN ×3 (00:12→09:28)
[2020-01-31 01:17] VITALS: BP_SYST 125
[2020-01-31] MEDS: PIPERACILLIN/TAZO 3.375/DEX-IS 50 ML IV SCH (04:37)
[2020-01-31] MEDS: ENOXAPARIN SODIUM 80 MG/0.8 ML SYRINGE SUBCUT SCH (04:39)
[2020-01-31 09:25] VITALS: BP_SYST 133
[2020-01-31] MEDS: ONDANSETRON HCL 4 MG/2 ML VIAL IVP PRN (09:27)
[2020-01-31] MEDS: OXYBUTYNIN CHLORIDE 5 MG TABLET PO SCH (09:34)
[2020-01-31] MEDS: POTASSIUM CHLORIDE 20 MEQ TAB.PRT.SR PO SCH (09:34)
[2020-01-31] MEDS: LACTOBACILLUS RHAMNOSUS GG 1 CAP CAPSULE PO SCH (09:34)
[2020-01-31] MEDS: PARoxetine HCL 20 MG TABLET PO SCH (09:34)
[2020-01-31] MEDS: GABAPENTIN 100 MG CAPSULE PO SCH (09:35)
[2020-01-31] MEDS: CHOLECALCIFEROL (VITAMIN D3) 2,000 UNIT TABLET PO SCH (09:35)
[2020-01-31 09:47] VITALS: BP_SYST 117
[2020-01-31] MEDS ORDERED: DOXY100C PO (14:43)
[2020-01-31] MEDS ORDERED: DIF100 PO (14:45)
== END 2020-01-31 10:30 | disposition home health service (06) | DRG 720 ==
LOC: SED 15:40 → SIC 17:39 → STU 01-16 23:21 → SMU 01-28 14:37
PROVIDERS: ADMIT Internal Medicine; ATTEND Internal Medicine
PROC: 30233N1 Transfusion of Nonautologous Red Blood Cells into Peripheral Vein, Percutaneous Approach (ICD-10-PCS; principal; 2020-01-16)
DX: A41.9 Sepsis, unspecified organism (principal); R65.21 Severe sepsis with septic shock; E43 Unspecified severe protein-calorie malnutrition; N17.0 Acute kidney failure with tubular necrosis; C55 Malignant neoplasm of uterus, part unspecified; D64.9 Anemia, unspecified; E66.9 Obesity, unspecified; E86.0 Dehydration; E87.6 Hypokalemia; G89.4 Chronic pain syndrome; I10 Essential (primary) hypertension; I82.411 Acute embolism and thrombosis of right femoral vein; J96.20 Acute and chronic respiratory failure, unspecified whether with hypoxia or hypercapnia; M21.371 Foot drop, right foot; C78.7 Secondary malignant neoplasm of liver and intrahepatic bile duct; D61.818 Other pancytopenia; F41.9 Anxiety disorder, unspecified; G89.3 Neoplasm related pain (acute) (chronic); K66.0 Peritoneal adhesions (postprocedural) (postinfection); N13.9 Obstructive and reflux uropathy, unspecified; F32.9 Major depressive disorder, single episode, unspecified; R59.0 Localized enlarged lymph nodes; R19.00 Intra-abdominal and pelvic swelling, mass and lump, unspecified site; E83.42 Hypomagnesemia; E83.39 Other disorders of phosphorus metabolism; Y83.9 Surgical procedure, unspecified as the cause of abnormal reaction of the patient, or of later complication, without mention of misadventure at the time of the procedure; N13.6 Pyonephrosis; M21.372 Foot drop, left foot; W18.30XA Fall on same level, unspecified, initial encounter; Z20.828 Contact with and (suspected) exposure to other viral communicable diseases; K56.699 Other intestinal obstruction unspecified as to partial versus complete obstruction; E87.1 Hypo-osmolality and hyponatremia; C79.60 Secondary malignant neoplasm of unspecified ovary; Z79.01 Long term (current) use of anticoagulants; T83.593A Infection and inflammatory reaction due to other urinary stents, initial encounter; Z79.810 Long term (current) use of selective estrogen receptor modulators (SERMs); Z82.49 Family history of ischemic heart disease and other diseases of the circulatory system; Z85.42 Personal history of malignant neoplasm of other parts of uterus; Z68.34 Body mass index [BMI] 34.0-34.9, adult; Z88.8 Allergy status to other drugs, medicaments and biological substances; Z85.43 Personal history of malignant neoplasm of ovary; Z86.718 Personal history of other venous thrombosis and embolism; Z88.1 Allergy status to other antibiotic agents; Y92.89 Other specified places as the place of occurrence of the external cause; Z90.710 Acquired absence of both cervix and uterus; Z92.21 Personal history of antineoplastic chemotherapy; Z93.2 Ileostomy status
CPT/HCPCS: 36415; 70450-TC; 71045; 74250-TC; 80048; 80053; 81000-TC; 82607; 82746; 82962; 83540-TC; 83550-TC; 83605; 83735-TC; 83880; 84100-TC; 84478-TC; 84484; 85007; 85025; 85027; 86304; 86886; 86900; 86901; 86920; 87040-TC; 87081; 87086; 93005; 93970; 96365; 96375; 97110-GP; 97116-GP; 97530-GP; 99291; A5061; C9113; G0378; J0744; J1170; J1200; J1450; J1650; J1815; J1885; J1956; J2185; J2270; J2274; J2405; J2543; J2765; J2916; J3475; J3480; J3490; J7030; J7040; J7050; J7060; J7120; J7131; P9021; P9046; Q9963; Q9964